=== PATIENT | female | born 2000 | race Caucasian/White ===

== ENCOUNTER 2021-11-12 19:41 | Emergency (ER) | payer OTHER ==
[~2021-11-12] VITALS: Ht 152.4 cm; Wt 107.7 kg
[2021-11-12] MEDS ORDERED: TRILEPTAL300 MG PO (19:46)
[2021-11-12] MEDS ORDERED: CELEXA10 MG PO (19:46)
== END 2021-11-12 20:50 | disposition home or self-care (01) ==
LOC: ED 19:41
DX: S09.90XA Unspecified injury of head, initial encounter (principal); M62.838 Other muscle spasm; Z79.899 Other long term (current) drug therapy; V47.5XXA Car driver injured in collision with fixed or stationary object in traffic accident, initial encounter; Y93.89 Activity, other specified; Y92.89 Other specified places as the place of occurrence of the external cause; Y99.8 Other external cause status